=== PATIENT | female | born 1950 | race Caucasian/White ===

== ENCOUNTER 2021-11-13 07:16 | Day surgery (SDC) | payer OTHER, MEDICAID ==
[~2021-11-13] VITALS: Ht 165.1 cm; Wt 104.3 kg
[2021-11-13] MEDS ORDERED: fentaNYL CITRATE/PF 100 MCG/2 ML AMP ONE (07:28)
[2021-11-13] MEDS ORDERED: MIDAZOLAM HCL 5 MG/5 ML VIAL ONE (07:28)
[2021-11-13] MEDS ORDERED: SIMETHICONE 40 MG/0.6 ML ML ONE (07:28)
[2021-11-13 12:54] VITALS: BP_SYST 196
== END 2021-11-13 10:20 ==
LOC: SDS 07:16 → SMU 07:17 → SDS 10:20
PROVIDERS: ATTEND Internal Medicine
DX: K59.00 Constipation, unspecified (principal); K64.8 Other hemorrhoids; E78.5 Hyperlipidemia, unspecified; E11.9 Type 2 diabetes mellitus without complications; I10 Essential (primary) hypertension; E66.9 Obesity, unspecified; Z90.49 Acquired absence of other specified parts of digestive tract; Z79.899 Other long term (current) drug therapy; Z20.822 Contact with and (suspected) exposure to COVID-19
CPT/HCPCS: 45378; 87426; 82962; 36415; 99152; G0378; J2250; J3010